=== PATIENT | female | born 1975 | race Hispanic/Latino ===

== ENCOUNTER 2018-12-15 19:52 | Inpatient (IN) | payer BC ==
[~2018-12-15] VITALS: Ht 162.6 cm; Wt 117.9 kg
[~2018-12-15 19:52] MED LIST: ALEVE
[2018-12-15] MEDS ORDERED: ONDANSETRON HCL INJ 2MG/ML 2ML 2 MG/ML VIAL IV ONE (21:04)
[2018-12-15] MEDS ORDERED: MORPHINE SULFATE INJ 4 MG/ML INJ 1ML IV ONE (21:15)
[2018-12-15] MEDS ORDERED: DICYCLOMINE HCL 20 MG/2 ML VIAL IM ONE (21:15)
[2018-12-15 22:14] LABS: BASOPHILS % 0.2 % (0.0-1.0); EOSINOPHILS # (AUTO) 0.1 (0.0-0.4); EOSINOPHILS % 0.4 % (0.0-6.0); HEMATOCRIT 38.4 % (34.2-44.1); LYMPHOCYTES # (AUTO) 1.4 (1.0-3.2); LYMPHOCYTES % 8.4 % (18.0-39.1); MEAN CORPUSCULAR HEMOGLOBIN 31.7 pg (28-32); MEAN CORPUSCULAR HGB CONC 33.9 g/dL (31-35); MEAN CORPUSCULAR VOLUME 93.7 fL (81-99); MONOCYTES # (AUTO) 0.3 (0.2-0.8); MONOCYTES % 1.8 % (4.4-11.3); NEUTROPHILS % 88.6 % (38.7-80.0); PLATELET COUNT 274 x10e3/uL (140-360); RED CELL DISTRIBUTION WIDTH 12.3 % (11.7-14.4)
[2018-12-15 22:20] LABS: BILIRUBIN,URINE NEGATIVE (NEGATIVE); CLARITY,URINE CLEAR (CLEAR); COLOR,URINE YELLOW (YELLOW); KETONES,URINE 1+ (NEGATIVE); LEUKOCYTE ESTERASE ,URINE TRACE (NEGATIVE); NITRITE,URINE NEGATIVE (NEGATIVE); PROTEIN,URINE DIPSTICK NEGATIVE (NEGATIVE); URINE UROBILINOGEN 0.2 mg/dL (0.2 - 1)
[2018-12-15 22:29] LABS: ALBUMIN 3.8 g/dL (3.5-5.0); ANION GAP 17.4 mmol/L (8-16); CALCIUM 9.5 mg/dL (8.4-10.2); CREATININE, SERUM 1.04 mg/dL (0.57-1.11); POTASSIUM 3.4 mmol/L (3.5-5.1)
[2018-12-15 22:40] LABS: AMYLASE 32 U/L (25-125); LIPASE 16 U/L (8-78)
--- NOTE | 2018-12-15 22:45 | Diagnostic Imaging Report ---
EXAM: Right Upper Quadrant Ultrasound INDICATION: ^RUQ PAIN ^Y COMPARISON: None. TECHNIQUE: Transverse and longitudinal images of the right upper abdomen were obtained. FINDINGS: Liver: Size: 20.9 cm in the right midclavicular line, enlarged Appearance: Increased echogenicity, smooth contour Mass: No focal masses Gallbladder: Stones/Sludge: None Wall: 0.3 cm Appearance: No pericholecystic fluid or hydrops. Sonographic Kirkpatrick's Sign: Negative Bile Ducts: Intrahepatic Ducts: No dilatation Extrahepatic Ducts: Common bile duct measures 0.5 cm, no dilatation Pancreas: Visualized pancreas is unremarkable. Right Kidney: Size: 10.9 cm Echogenicity: Normal Parenchymal thickness: Normal Collecting system: No hydronephrosis Stones: Punctate echogenic focus in the midpole. Cyst/Mass: None Vessels: Aorta: Visualized portions are normal Inferior Vena Cava: Visualized portions are normal Main Portal Vein: 1.1 cm, normal size with hepatopetal flow. Free Fluid: No ascites or pleural effusion IMPRESSION: Enlarged steatotic liver. Punctate right renal midpole echogenic focus, likely a calculus. Signed by: Dr. David Esquivel MD on 12/15/2018 10:42 PM
[2018-12-15 22:51] LABS: BACTERIA,URINE MANY /HPF; EPITHELIAL CELLS,URINE FEW /LPF; MUCUS,URINE FEW (RARE)
[2018-12-15] MEDS ORDERED: SODIUM CHLORIDE 0.9% 1000ML 1,000 ML IV ONE (23:00)
[2018-12-15] MEDS ORDERED: KETOROLAC TROMETHAMINE 30 MG/ML VIAL IV STA (23:35)
[2018-12-15] MEDS ORDERED: SODIUM CHLORIDE 0.9% 50ML 50 ML ONE (23:53)
[2018-12-15] MEDS ORDERED: IOPAMIDOL 370 MG/ML 200 ML INFUS..BTL INJ ONE (23:53)
--- NOTE | 2018-12-16 | NUR ---
PT PLACED ON HOSPITAL BED FOR COMFORT AND PLACED IN A ROOM CLOSER TO RESTROOM; PT CURRENTLY HAS NO COMPLAINTS, RESTING COMFORTABLY IN BED; NAD NOTED, RESP EVEN AND NONLAB;
--- NOTE | 2018-12-16 01:00 | Diagnostic Imaging Report ---
EXAM: CT Abdomen and Pelvis WITH contrast INDICATION: ^right side abdominal pain ^[id number] ^2355 ^Y COMPARISON: Same the right upper quadrant ultrasound TECHNIQUE: Abdomen and pelvis were scanned utilizing a multidetector helical scanner from the lung base to the pubic symphysis after administration of IV contrast. Coronal and sagittal reformations were obtained. Dose modulation, iterative reconstruction, and/or weight based adjustment of the mA/kV was utilized to reduce the radiation dose to as low as reasonably achievable. Routine protocol was performed. Scan was performed when during portal venous phase. IV CONTRAST: 100 mL of Isovue-370 ORAL CONTRAST: Water COMPLICATIONS: None RADIATION DOSE: Total DLP: 830.89 mGy*cm Estimated effective dose: (DLP x 0.015 x size factor) mSv CTDIvol has been reviewed. It is below the limits set by the Radiation Protocol Committee (RPC). FINDINGS: LINES and TUBES: None. LOWER THORAX: Unremarkable HEPATOBILIARY: No focal hepatic lesions. No biliary ductal dilation. GALLBLADDER: No radio-opaque stones or sludge. No wall thickening. SPLEEN: No splenomegaly. PANCREAS: No focal masses or ductal dilatation. ADRENALS: No adrenal nodules KIDNEYS/URETERS: Delayed right nephrogram with severe surrounding edema and mild hydroureteronephrosis, caused by a 3 mm right ureterovesical junction calculus. Left kidney is unremarkable. GI TRACT: No abnormal distention, wall thickening, or evidence of bowel obstruction. Appendix is normal. PELVIC ORGANS/BLADDER: Unremarkable. LYMPH NODES: No lymphadenopathy. VESSELS: Unremarkable. PERITONEUM / RETROPERITONEUM: No free air or fluid. BONES: Unremarkable. SOFT TISSUES: Unremarkable. IMPRESSION: 1. Delayed right nephrogram with severe surrounding edema and mild hydroureteronephrosis, caused by a 3 mm right ureterovesical junction calculus. Superimposed infectious process cannot be excluded. Signed by: Dr. David Esquivel MD on 12/16/2018 12:57 AM
[2018-12-16] MEDS ORDERED: ACETAMINOPHEN 1000 MG/100 ML IV PRN (01:15)
[2018-12-16] MEDS ORDERED: CEFTRIAXONE SOD 1 GM/NS 50 ML 50 ML IV SCH (01:15)
[2018-12-16] MEDS ORDERED: HYDROMORPHONE 1MG/1ML INJ IV PRN (01:15)
[2018-12-16] MEDS ORDERED: KCL 20MEQ/.9 SOD CHL 1,000 ML IV ONE (01:15)
[2018-12-16] MEDS ORDERED: ONDANSETRON HCL INJ 2MG/ML 2ML 2 MG/ML VIAL IV PRN (01:15)
--- OUTSIDE RECORDS SUMMARY | 2018-12-16 01:23 | XMS REPORT ---
[facility] Address Unknown Phone Unavailable Care Team Providers Care Rodeo Performer Name Role Phone Tamera BULLOCK Unavailable Unavailable Problems This patient has no known problems. Allergies, Adverse Reactions, Alerts This patient has no known allergies or adverse reactions. Medications This patient has no known medications. Results Test Description Test Time Test Comments Text Results Atomic Results Result Comments CT ABDOMEN/PELVIS W 2018-12-16 00:22:00 [facility] [address] [address] Patient Name: SIVAKUMAR CROOKS MR #: [id number] : 1975 Age/Sex: 43/F Req #: [id number] Adm Physician: Ordered by: ROSEY BULLOCK MD Report #: [id number] Location: ER Room/Bed: Procedure: [id number] CT/CT ABDOMEN/PELVIS W Exam Date: 12/15/18 Exam Time: 2354 REPORT STATUS: Signed EXAM: CT Abdomen and Pelvis WITH contrast INDIC ATION: right side abdominal pain [id number] Y COMPARISON: Same the right upper quadrant ultrasound TECHNIQUE: Abdomen and pelvis were scanned utilizing a multidetector helical scanner from the lung base to the pubic symphysis after administration of IV contrast. Coronal and sagittal reformations were obtained. Dose modulation, iterative reconstruction, and/or weight based adjustment of the mA/kV was utilized to reduce the radiation dose to as low as reasonably achievable. Routine protocol was performed. Scan was performed when during portal venous phase. IV CONTRAST: 100 mL of Isovue-370 ORAL CONTRAST: Water COMPLICATIONS: None RADIATION DOSE: Total DLP: 830.89 mGy*cm Estimated effective dose: (DLP x 0.015 x size factor) mSv CTDIvol has been reviewed. It is below the limits set by the Radiation Protocol Committee (RPC). FINDINGS: LINES and TUBES: None. LOWER THORAX: Unremarkable HEPATOBILIARY: No focal hepatic lesions. No biliary ductal dilation. GALLBLADDER: No radio-opaque stones or sludge. No wall thickening. SPLEEN: No splenomegaly. PANCREAS: No focal masses or ductal dilatation. ADRENALS: No adrenal nodules KIDNEYS/URETERS: Delayed right nephrogram with severe surrounding edema and mild hydroureteronephrosis, caused by a 3 mm right ureterovesical junction calculus. Left kidney is unremarkable. GI TRACT: No abnormal distention, wall thickening, or evidence of bowel obstruction. Appendix is normal. PELVIC ORGANS/BLADDER: Unremarkable. LYMPH NODES: No lymphadenopathy. VESSELS: Unremarkable. PERITONEUM / RETROPERITONEUM: No free air or fluid. BONES: Unremarkable. SOFT TISSUES: Unremarkable. IMPRESSION: 1. Delayed right nephrogram with severe surrounding edema and mild hydroureteronephrosis, caused by a 3 mm right ureterovesical junction calculus. Superimposed infectious process cannot be excluded. Signed by: Dr. David Jasso MD on 12/16/2018 12:57 AM Dictated By: DAVID JASSO MD Transcribed By: NORRIS on 12/16/1856 COPY TO: ROSEY BULLOCK MD GALLBLADDER 2018-12-15 22:39:00 [address] [address] Patient Name: SIVAKUMAR CROOKS MR #: [id number] : 1975 Age/Sex: 43/F Req #: [id number] Adm Physician: Ordered by: ROSEY BULLOCK MD Report #: [id number] Location: ER Room/Bed: Procedure: [id number] US/US GALLBLADDER Exam Date: 12/15/18 Exam Time: 2146 REPORT STATUS: Signed EXAM: Right Upper Quadrant Ultrasound INDICATION: RUQ PAIN Y COMPARISON: None. TECHNIQUE: Transverse and longitudinal images of the right upper abdomen were obtained. FINDINGS: Liver: Size: 20.9 cm in the right midclavicular line, enlarged Appearance: Increased echogenicity, smooth contour Mass: No focal masses Gallbladder: Stones/Sludge: None Wall: 0.3 cm Appearance: No pericholecystic fluid or hydrops. Sonographic Kirkpatrick's Sign: Negative Bile Ducts: Intrahepatic Ducts: No dilatation Extrahepatic Ducts: Common bile duct measures 0.5 cm, no dilatation Pancreas: Visualized pancreas is unremarkable. Right Kidney: Size: 10.9 cm Echogenicity: Normal Parenchymal thickness: Normal Collecting system: No hydronephrosis Stones: Punctate echogenic focus in the midpole. Cyst/Mass: None Vessels: Aorta: Visualized portions are normal Inferior Vena Cava: Visualized portions are normal Main Portal Vein: 1.1 cm, normal size with hepatopetal flow. Free Fluid: No ascites or pleural effusion IMPRESSION: Enlarged steatotic liver. Punctate right renal midpole echogenic focus, likely a calculus. Signed by: Dr. David Jasso MD on 12/15/2018 10:42 PM Dictated By: DAVID JASSO MD 43 Transcribed By: NORRIS on 12/15/182241 COPY TO: ROSEY BULLOCK MD
[2018-12-16 05:45] VITALS: BP 110/63
--- NOTE | 2018-12-16 05:54 | NUR ---
CHARGE TAKEN REPORT, GIVEN TO RN PAPER. NO OTHER REPORT RECEIVED. PATIENT ON UNIT.
--- NOTE | 2018-12-16 06:05 | NUR ---
PATIENT AAOX4, DENIES PAIN, UPDATED ON PLAN OF CARE. NO NEEDS VOICED. PROVIDED WITH HAT AND STRAIN FOR URINE STRAINS. BED LOCKED AND IN LOWEST POSITION, CALL LIGHT WITHIN EASY REACH. WILL CONTINUE TO MONITOR PATIENT.
[2018-12-16 06:42] VITALS: BP 110/63
[2018-12-16 06:49] VITALS: BP 110/63
--- NOTE | 2018-12-16 08:01 | NUR ---
PATIENT PASSED A STONE AT 0710- DR. MCFARLAND INFORMED, PATIENT NOT GOING TO THE OR AT THIS TIME . PATIENT IN STABLE CONDITION WITH NO S/S OF RESPIRATORY DISTRESS. NO PAIN VOICED. PRESENT IN THE ROOM. IV FLUIDS INFUSING. CALL LIGHT IS WITHIN REACH, PATIENT INSTRUCTED TO CALL FOR ASSISTANCE NEEDED. SPOKE TO DR. MCFARLAND- PATIENT CAN BE PLACED ON REGULAR DIET
[2018-12-16 08:08] VITALS: BP 127/59
[2018-12-16 10:26] VITALS: BP 127/59
[2018-12-16] MEDS ORDERED: LISINOPRIL-HCT1 EACH PO (11:00)
[2018-12-16 11:22] VITALS: BP 135/65
--- NOTE | 2018-12-16 14:16 | NUR ---
PATIENT DISCHARGE HOME- PATIENT OFF THE UNIT AT 1327 PER WHEELCHAIR ACCOMPANIED BY NURSE TO THE FRONT LOBBY. PATIENT IN STABLE CONDITION WITH NO S/S OF RESPIRATORY DISTRESS. NO PAIN VOICED. IV REMOVED WITH TIP INTACT. DISCHARGE TEACHING AND INSTRUCTIONS GIVEN TO THE PATIENT. ALL PERSONAL ITEMS TAKEN WITH THE PATIENT AND HER .
--- NOTE | 2018-12-16 16:25 | History and Physical ---
Ms. Anthony is a pleasant 43-year-old woman, who presents to the emergency room with a complaint of right-sided flank pain. HISTORY OF PRESENT ILLNESS: The patient reports she did have a kidney stone once 14 years ago, but "forgot what the discomfort was like." PAST MEDICAL HISTORY: Significant for hypertension. She had previous right knee surgery at [facility] in July of 2014. She has hypertension. HOME MEDICATIONS: Include lisinopril 20/12.5 two tablets each day. PERSONAL AND SOCIAL HISTORY: She does not smoke or drink. ALLERGIES: SHE HAS NO ALLERGIES. PHYSICAL EXAMINATION: GENERAL: At this time shows an obese, woman, who is about 5 feet 4 inches tall, weighing about 260 pounds, blood pressure 127/59. HEAD, EYES, EARS, NOSE, AND THROAT: Unremarkable. NECK: No jugular venous distention, thorax. HEART: Sounds S1 and S2 are equal. No murmurs, gallops, or rubs. LUNGS: Clear. ABDOMEN: Markedly protuberant. Normal bowel sounds. Nontender. EXTREMITIES: No cyanosis, clubbing, or edema. PERTINENT LABORATORY STUDIES: Show BUN 15, creatinine 1.0, and potassium 3.4. CAT scan of the abdomen suggests an 3 mm right ureterovesicular calculus with surrounding edema and hydronephrosis. ASSESSMENT: 1. Kidney stone. 2. History of hypertension. 3. Hydronephrosis. PLAN: We will give analgesics and IV fluids. The patient will be seen by Dr. Tapia with possible cystoscopy if needed. MD BERNIE Witt/CHRISTINA /[id number] cc: MD Jill Roper MD
--- NOTE | 2018-12-17 05:38 | Discharge Summary ---
Ms. Anthony is a pleasant 43-year-old woman, who presented to the emergency room with right-sided flank pain. HOSPITAL COURSE: CAT scan showed right-sided ureterovesicular stone and surrounding edema. She was given IV fluids and analgesics and passed the stone which was caught by strainer. She was given supplemental potassium. She was discharged home to follow up with Dr. Brito and Dr. Tapia as an outpatient. DISCHARGE DIAGNOSES: 1. Ureterovesicular kidney stone. 2. Hypertension. MD BERNIE Witt/GREGORL /[id number] cc: MD Hermilo Gaffney MD
--- NOTE | 2018-12-19 14:36 | Consultation ---
DATE OF CONSULTATION: 12/16/2018 Urology Consultation Note Consultation called by the emergency room. CHIEF COMPLAINT/REASON FOR CONSULTATION: Ureteral calculus. HISTORY OF PRESENT ILLNESS: Ms. Anthony is a very pleasant 43-year-old female, admitted to the hospital with sharp severe flank pain, found to have a 3 mm distal ureteral calculus with urinary tract infection. PAST MEDICAL HISTORY: Obesity. MEDICATIONS: Please see MAR. ALLERGIES: NKDA. SOCIAL HISTORY: She denies smoking or drinking. FAMILY HISTORY: Denied urologic stones or malignancies. REVIEW OF SYSTEMS: Noncontributory other than problems mentioned above for 12 organ systems. PHYSICAL EXAMINATION: GENERAL: A middle-aged female, in no acute distress. VITAL SIGNS: Currently, temperature 96.9, pulse 98, respirations 20, blood pressure 110/63. HEENT: Sclerae anicteric. NECK: Supple. BACK: Without costovertebral angle tenderness bilaterally. ABDOMEN: Soft. It is nontender. It is obese. It is nondistended. No palpable mass. No palpable hernias. No palpable adenopathy. : Normal female external genitalia. EXTREMITIES: No edema. NEUROLOGIC: Moves all 4 extremities. PSYCH: Alert and appropriate. SKIN: Intact. Normal color. Nurse fiber technician was in . PERTINENT LABORATORY DATA: Sodium 135, potassium 3.4, chloride 98, bicarb 23, BUN 15, creatinine 1.04, and glucose 152. Hemoglobin 13, hematocrit 38, platelet count 274,000, and white cell count 16,900. Urinalysis; positive leuk's, positive blood. CT scan, 3 mm distal ureteral stone, hydronephrosis. IMPRESSION: 1. Ureteral calculus. 2. Hydronephrosis. 3. Obesity. 4. Leukocytosis. 5. Hypokalemia. PLAN: The patient passed her stone, we can safely discharge the patient on oral antibiotics with outpatient followup, recommend weight loss, stone prevention strategies. Thank you for allowing me to participate in the care of your patient. We will be happy to follow along with you as an outpatient. MD ANN Roper/CHRISTINA /[id number]
== END 2018-12-16 13:27 | disposition home or self-care (01) | DRG 690 ==
LOC: ER 19:52 → ERHOLD 12-16 01:20 → MED/SURG3 12-16 05:56
PROVIDERS: ADMIT Internal Medicine Cardiovascular Disease; ATTEND Internal Medicine Cardiovascular Disease
DX: N13.6 Pyonephrosis (principal); Z68.41 Body mass index [BMI] 40.0-44.9, adult; I10 Essential (primary) hypertension; Z87.442 Personal history of urinary calculi; Z83.3 Family history of diabetes mellitus; Z82.49 Family history of ischemic heart disease and other diseases of the circulatory system; D72.829 Elevated white blood cell count, unspecified; E66.9 Obesity, unspecified; E87.6 Hypokalemia
CPT/HCPCS: 36415; 74177; 76705; 80053; 81001; 82150; 83690; 84702; 85025; 87086; 88300; 99284; J0500; J0696; J1885; J2270; J2405; J7030; Q9967